=== PATIENT | male | born 1965 | race Caucasian/White ===

== ENCOUNTER 2021-05-22 15:36 | Outpatient (CLI) | payer OTHER ==
[2021-05-23 12:04] LABS: SARS-CoV-2 PCR by NAA Not Detected (NotDetected)
== END 2021-05-22 15:37 | disposition home or self-care (01) ==
LOC: LABBT 15:36
PROVIDERS: ATTEND Urology
DX: Z01.818 Encounter for other preprocedural examination (principal); Z20.822 Contact with and (suspected) exposure to COVID-19
CPT/HCPCS: 93005; 93010; U0003; U0005

== ENCOUNTER 2021-05-24 07:25 | Day surgery (SDC) | payer OTHER ==
[2021-05-23 13:07] VITALS: BMI 41.8
[2021-05-24] MEDS ORDERED: Levofloxacin 500 mg/D5W 100 ml Premix Bag ONE (07:49)
[2021-05-24] MEDS ORDERED: Iothalamate Meglumine 60% 50 ML VIAL FS ONE (08:01)
[2021-05-24] MEDS ORDERED: Fentanyl 100 MCG/2 ML VIAL ONE ×2 (08:27)
[2021-05-24] MEDS ORDERED: Dexamethasone 20 MG/5 ML VIAL ONE (08:37)
[2021-05-24] MEDS ORDERED: Lidocaine 1% PF 5 ML VIAL ONE (08:37)
[2021-05-24] MEDS ORDERED: PHENYLEPHRINE-NS 100 MCG/ML 10 ML SYRINGE ONE (08:37)
[2021-05-24] MEDS ORDERED: PROPOFOL 200 MG/20 ML VIAL ONE (08:37)
[2021-05-24] MEDS ORDERED: Ondansetron PF 4 MG/2 ML Vial ONE (08:37)
[2021-05-24] MEDS ORDERED: Labetalol HCl 100 MG/20 ML VIAL ONE (09:20)
[2021-05-24] MEDS ORDERED: Oxybutynin 5 MG TAB ONE (09:21)
[2021-05-24] MEDS ORDERED: Phenazopyridine HCl 100 MG TAB ONE (09:21)
[2021-05-24] MEDS ORDERED: Ketorolac Tromethamine 30 MG/ML VIAL ONE (09:21)
[2021-05-24] MEDS ORDERED: hydrALAZINE 20 MG/ML VIAL ONE ×4 (09:48→10:59)
== END 2021-05-24 11:38 | disposition home or self-care (01) ==
LOC: SDC 07:25
PROVIDERS: ATTEND Urology
PROC: 0TC78ZZ Extirpation of Matter from Left Ureter, Via Natural or Artificial Opening Endoscopic (ICD-10-PCS; principal; 2021-05-24)
PROC: 0TC48ZZ Extirpation of Matter from Left Kidney Pelvis, Via Natural or Artificial Opening Endoscopic (ICD-10-PCS; principal; 2021-05-24)
PROC: 0T778DZ Dilation of Left Ureter with Intraluminal Device, Via Natural or Artificial Opening Endoscopic (ICD-10-PCS; principal; 2021-05-24)
DX: N20.2 Calculus of kidney with calculus of ureter (principal); I10 Essential (primary) hypertension; R06.83 Snoring; M25.519 Pain in unspecified shoulder; F17.220 Nicotine dependence, chewing tobacco, uncomplicated; E66.01 Morbid (severe) obesity due to excess calories; Z68.41 Body mass index [BMI] 40.0-44.9, adult; Z98.52 Vasectomy status; Z88.0 Allergy status to penicillin; Z88.8 Allergy status to other drugs, medicaments and biological substances; Z79.1 Long term (current) use of non-steroidal anti-inflammatories (NSAID); Z79.899 Other long term (current) drug therapy
CPT/HCPCS: 74420; 82365; 88300; C2617; J0360; J1885; J1956; J3010; Q9961-U8